=== PATIENT | female | born 1970 | race Caucasian/White ===

== ENCOUNTER 2018-02-13 15:17 | Emergency (ER) | payer OTHER ==
[~2018-02-13] VITALS: Ht 165.1 cm; Wt 105.6 kg
[~2018-02-13 15:17] MED LIST: ACET500C6 PO; ENOXAPARIN SQ; ONDA4TAB46 PO; WARF7.5T PO
[2018-02-13 15:20] VITALS: Ht 165.1 cm; Wt 105.6 kg
[2018-02-13] MEDS ORDERED: LORAZEPAM 2 MG/ML 1 ML VIAL IV STA (15:31)
[2018-02-13 15:50] LABS: BASO % 0.3 %; BASO ABS # 0.03 K/uL (0-0.2); EOS % 1.6 %; EOS ABS # 0.14 K/uL (0-0.5); HEMATOCRIT 39.7 % (37-47); HEMOGLOBIN 13.3 g/dL (12.0-16.0); IG# 0.01 K/uL (0.00-0.02); LYMPH % 30.3 %; MEAN CELL VOLUME 84.3 fL (80-100); MEAN CORPUSCULAR HEMOGLOBIN 28.2 pg (25-34); MEAN CORPUSCULAR HGB CONC 33.5 g/dl (32-36); MEAN PLATELET VOLUME 10.1 fL (7.4-10.4); MONO % 7.4 %; MONO ABS # 0.66 K/uL (0.11-0.59); NEUT % 60.3 %; NEUT ABS # 5.38 K/uL (1.4-6.5); PLATELET COUNT 279 K/uL (130-400); RED CELL DISTRIBUTION WIDTH SD 39.5 fL (36.4-46.3); WHITE BLOOD COUNT 8.92 K/uL (4.8-10.8)
[2018-02-13 16:11] LABS: CALCIUM 8.7 mg/dl (8.5-10.1); CREATININE 0.73 mg/dl (0.60-1.20); POTASSIUM 3.7 mmol/L (3.5-5.1)
[2018-02-13] MEDS ORDERED: ACET500T58 PO (16:53)
[2018-02-13] MEDS ORDERED: OPTIRAY 320 IV PRN (17:00)
--- NOTE | 2018-02-13 17:02 | DIAGNOSTIC IMAGING REPORT ---
CT FACIAL-MAXILLOFACIAL WITH CT DOSE: 152.83 mGy.cm CLINICAL HISTORY: Severe left jaw pain TECHNIQUE: Helical images were acquired in transverse plane. The patient was injected with 116 cc of Optiray 320. Multiplanar reformatted images were reviewed. A dose lowering technique was utilized adhering to the principles of ALARA. COMPARISON STUDY: None. FINDINGS: No orbital masses are visualized. No salivary gland masses are visualized. There is no evidence of pathologic adenopathy. There is sphenoid sinus mucosal thickening. The zygomatic arches appear intact. The pterygoid plates appear intact. The orbital darby and floor appear intact. No mandibular fractures are visualized. There is no evidence of TMJ dislocation. IMPRESSION: 1. No fractures identified 2. No evidence of TMJ subluxation 3. Sphenoid sinus mucosal thickening Electronically signed by: Jesse Townsend M.D. 02/13/2018 5:01 PM Dictated Date/Time: 02/13/2018 4:56 PM
[2018-02-13 17:29] VITALS: BP 136/82; PULSE 62; TEMP 36.7; O2SAT 95
[2018-02-13] MEDS ORDERED: CYCL10TA6 PO (21:32)
[2018-02-13] MEDS ORDERED: ALPR-411 PO (21:32)
[2018-02-13] MEDS ORDERED: SERT-234 PO (21:32)
--- NOTE | 2018-02-13 21:35 | EMERGENCY ROOM VISIT NOTE ---
History Report prepared by Scribe: Regina Loomis Under the Supervision of: Dr. Jose Lopez D.O. First contact with patient: 15:23 Chief Complaint: FACIAL PAIN/INJURY Stated Complaint: UNABLE TO OPEN JAW,VERY PAINFUL History of Present Illness The patient is a 47 year old female who presents to the Emergency Room with complaints of worsening jaw pain for the past 1 week. She rates her pain as a 6/ 10 in severity. She reports a crown came off one of her left lower back teeth approximately 10 days ago. She went to her dentist and had the crown replaced, but ever since then, she has been unable to open her mouth normally. She states there was no sign of infection in the tooth when the crown was replaced. She saw her dentist yesterday and was given medication and told to use heat on the area. She is able to speak and tolerating secretions. She is able to drink but cannot open her mouth far enough to eat comfortably. There has been no swelling in her tongue. She does admit to a history of TMJ but states her jaw has always but locked "open" in the past, and never "closed". Pt denies headache, change in vision, fevers, chest pain, shortness of breath, nausea, vomiting, diarrhea, pain with urination, and melena. Source of History: patient Onset: 10 days [employer] Position: jaw Symptom Intensity: 6/10 Timing: worsening Modifying Factors (Worsening): other (dental procedure) Associated Symptoms: No fevers, No headache, No chest pain, No SOB, No nausea, No vomiting, No melena, No diarrhea, No urinary symptoms Review of Systems See HPI for pertinent positives & negatives. A total of 10 systems reviewed and were otherwise negative. Past Medical & Surgical Medical Problems: (1) Chest pain (2) Chronic back pain (3) History of DVT (deep vein thrombosis) (4) History of pulmonary embolism (5) Lung nodule (6) Mitral valve prolapse Surgical Problems: (1) H/O wisdom tooth extraction (2) History of endometrial ablation (3) History of loop electrosurgical excision procedure (LEEP) (4) Hx of ulnar neve revision at elbow (5) S/P rotator cuff repair Family History Diabetes mellitus FH: heart disease FATHER ([place] x2, onset age 65) GRANDFATHER FHx: cancer MOTHER (uterine) Hypertension FATHER Stroke GRANDFATHER Social History Smoking Status: Never Smoker Alcohol Use: occasionally Drug Use: none Marital Status: Housing Status: lives with family Occupation Status: employed Current/Historical Medications Scheduled Sertraline (Zoloft), 100 MG PO DAILY Scheduled PRN Acetaminophen (Acetaminophen), 500 MG PO Q6H PRN for Pain or Fever Alprazolam (Xanax), 0.5 MG PO TID PRN for Anxiety Cyclobenzaprine Hcl (Flexeril), 10 MG PO TID PRN for Muscle Spasm Allergies Coded Allergies: Corticosteroids (Unverified Allergy, Mild, 11/22/15) Cortisone (Unverified Allergy, Mild, 11/22/15) Physical Exam Vital Signs Date Time Temp Pulse Resp B/P (MAP) Pulse Ox O2 Delivery O2 Flow Rate FiO2 02/13/18 17:29 36.7 62 16 136/82 95 02/13/18 17:26 62 16 136/82 95 Room Air 02/13/18 17:05 62 16 144/100 95 Room Air 02/13/18 15:20 36.7 69 16 141/85 98 Room Air Physical Exam GENERAL: Sitting up in bed, alert, well appearing, well nourished, no distress, non-toxic, talking in full sentences EYE EXAM: normal conjunctiva. OROPHARYNX: no exudate, no erythema, lips, buccal mucosa, and tongue normal and mucous membranes are moist. Patient is tolerating secretions, able to open mouth 30 degrees with significant tenderness over the left TMJ to the left angle of the mandible, no swelling of face, under tongue or submandibular region. Normal phonation. NECK: supple, no nuchal rigidity, no adenopathy, non-tender LUNGS: Clear to auscultation. Normal chest wall mechanics HEART: no murmurs, S1 normal and S2 normal ABDOMEN: abdomen soft, non-tender, normo-active bowel sounds, no masses, no rebound or guarding. SKIN: no rashes and no bruising UPPER EXTREMITIES: upper extremities are grossly normal. LOWER EXTREMITIES: No pitting edema. NEURO EXAM: Normal sensorium, cranial nerves II-XII grossly intact, normal speech, no gross weakness of arms, no gross weakness of legs. Gross sensation intact. Medical Decision & Procedures ER Provider Diagnostic Interpretation: Radiology results as stated below per my review and the radiologist's interpretation: CT FACIAL-MAXILLOFACIAL WITH CT DOSE: 152.83 mGy.cm CLINICAL HISTORY: Severe left jaw pain TECHNIQUE: Helical images were acquired in transverse plane. The patient was injected with 116 cc of Optiray 320. Multiplanar reformatted images were reviewed. A dose lowering technique was utilized adhering to the principles of ALARA. COMPARISON STUDY: None. FINDINGS: No orbital masses are visualized. No salivary gland masses are visualized. There is no evidence of pathologic adenopathy. There is sphenoid sinus mucosal thickening. The zygomatic arches appear intact. The pterygoid plates appear intact. The orbital darby and floor appear intact. No mandibular fractures are visualized. There is no evidence of TMJ dislocation. IMPRESSION: 1. No fractures identified 2. No evidence of TMJ subluxation 3. Sphenoid sinus mucosal thickening Electronically signed by: Jesse Townsend M.D. 02/13/2018 5:01 PM Laboratory Results 02/13/18 15:35 Red Blood Count 4.71, Mean Corpuscular Volume 84.3, Mean Corpuscular Hemoglobin 28.2, Mean Corpuscular Hemoglobin Concent 33.5, Mean Platelet Volume 10.1, Neutrophils (%) (Auto) 60.3, Lymphocytes (%) (Auto) 30.3, Monocytes (%) (Auto) 7.4, Eosinophils (%) (Auto) 1.6, Basophils (%) (Auto) 0.3, Neutrophils # (Auto) 5.38, Lymphocytes # (Auto) 2.70, Monocytes # (Auto) 0.66, Eosinophils # (Auto) 0.14, Basophils # (Auto) 0.03 02/13/18 15:35 Test 02/13/18 15:35 White Blood Count 8.92 K/uL (4.8-10.8) Red Blood Count 4.71 M/uL (4.2-5.4) Hemoglobin 13.3 g/dL (12.0-16.0) Hematocrit 39.7 % (37-47) Mean Corpuscular Volume 84.3 fL (80-100) Mean Corpuscular Hemoglobin 28.2 pg (25-34) Mean Corpuscular Hemoglobin Concent 33.5 g/dl (32-36) Platelet Count 279 K/uL (130-400) Mean Platelet Volume 10.1 fL (7.4-10.4) Neutrophils (%) (Auto) 60.3 % Lymphocytes (%) (Auto) 30.3 % Monocytes (%) (Auto) 7.4 % Eosinophils (%) (Auto) 1.6 % Basophils (%) (Auto) 0.3 % Neutrophils # (Auto) 5.38 K/uL (1.4-6.5) Lymphocytes # (Auto) 2.70 K/uL (1.2-3.4) Monocytes # (Auto) 0.66 K/uL (0.11-0.59) Eosinophils # (Auto) 0.14 K/uL (0-0.5) Basophils # (Auto) 0.03 K/uL (0-0.2) RDW Standard Deviation 39.5 fL (36.4-46.3) RDW Coefficient of Variation 13.0 % (11.5-14.5) Immature Granulocyte % (Auto) 0.1 % Immature Granulocyte # (Auto) 0.01 K/uL (0.00-0.02) Anion Gap 5.0 mmol/L (3-11) Est Creatinine Clear Calc Drug Dose 115.0 ml/min Estimated GFR () 113.7 Estimated GFR (Non- 98.1 BUN/Creatinine Ratio 8.5 (10-20) Calcium Level 8.7 mg/dl (8.5-10.1) Laboratory results per my review. Medications Administered Medications (Trade) Dose Ordered Sig/Andrade Route Start Time Stop Time Status Last Admin Dose Admin Lorazepam (Ativan Inj) 1 mg NOW STAT IV 02/13/18 15:31 02/13/18 15:34 DC 02/13/18 15:47 1 MG ED Course ED COURSE: Vital signs were reviewed and showed normal vitals. The patients medical record was reviewed The above diagnostic studies were performed and reviewed. ED treatments and interventions as stated above. 1524: The patient was evaluated in room A11. A complete history and physical examination was performed. 1531: Ativan 1 mg IV. 1710: Upon reevaluation, the patient is feeling much better. I discussed my findings with the patient and she understands and agrees with the treatment plan. Based on the patients age, coexisting illnesses, exam and lab findings the decision to treat as an outpatient was made. The patient remained stable while under my care. The patient appeared well at the time of discharge. Medical Decision Differential diagnoses considered include TMJ, parotitis and dental abscess. Patient is a 47-year-old female who presents the ER for severe left toe pain. She notes that she is having trouble opening her mouth. On exam she is able to have a full conversation and open-mouth 30. No other complaints. No fevers. She is acute tenderness over the left TMJ and angle of the mandible. She also has significant pain on palpation of her lower dentition. CT of the face is unremarkable. CBC and BMP were benign. She was given Ativan with minimal improvement of the ability to open the mouth. Her dentist recently performed the surgery her lower molar has been prescribing pain meds. She will follow-up with him as an outpatient in TMJ clinic. Discussed with Pt concerning signs and symptoms to watch out for. Pt was instructed to follow up with their PCP and discussed with the patient their option to return to the ED at anytime for persistent or worsening symptoms. The appropriate anticipatory guidance and out- patient management, including indications for return to the emergency department , were explained at length to the patient and understood. Medication Reconcilliation Current Medication List: was personally reviewed by me Blood Pressure Screening Patient's blood pressure: Elevated blood pressure Blood pressure disposition: Elevated BP felt to be situational Impression Primary Impression: Facial pain Scribe Attestation The scribe's documentation has been prepared under my direction and personally reviewed by me in its entirety. I confirm that the note above accurately reflects all work, treatment, procedures, and medical decision making performed by me. Departure Information Dispostion Home / Self-Care Referrals Coy Loomis M.D. (PCP) Patient Instructions ED TMJ Syndrome, My [facility], [facility] Additional Instructions Please follow up with your primary care doctor with in the next 24 hours. Any worsening of your symptoms, please return to the ED immediately. This includes any fevers greater than 100.4, worsening pain, chest pain, shortness breath, persistent nausea, vomiting, unable to eat or drink, or any other concerning signs or symptoms from your standpoint. Please take Tylenol or Motrin as needed for pain. Please follow-up with your surgeon as soon as possible on Thursday.
== END 2018-02-13 17:31 | disposition home or self-care (01) ==
LOC: C.EDB 15:18 → C.EDA 17:31
DX: G50.1 Atypical facial pain (principal); Z88.8 Allergy status to other drugs, medicaments and biological substances